=== PATIENT | male | born 1965 | race Caucasian/White ===

== ENCOUNTER → 2023-12-02 11:36 | Outpatient (REF) | payer OTHER, SELFPAY | LOC: HWRAD 11:36 | PROVIDERS: ATTENDING PHYSICIAN Family Medicine | DX: Z00.00 Encounter for general adult medical examination without abnormal findings (principal); J44.9 Chronic obstructive pulmonary disease, unspecified | CPT/HCPCS: 71046 ==

== ENCOUNTER → 2024-05-20 07:18 | Outpatient (REF) | payer OTHER, SELFPAY | LOC: EMG 07:18 | PROVIDERS: ATTENDING PHYSICIAN Physician Assistant; FAMILY PHYSICIAN Family Medicine | DX: M54.16 Radiculopathy, lumbar region (principal); R20.0 Anesthesia of skin; R10.32 Left lower quadrant pain | CPT/HCPCS: 95886; 95911 ==

== ENCOUNTER → 2024-07-21 08:22 | Outpatient (REF) | payer OTHER, SELFPAY | LOC: HWRAD 08:22 | PROVIDERS: ATTENDING PHYSICIAN Nurse Practitioner | DX: R10.9 Unspecified abdominal pain (principal); K86.1 Other chronic pancreatitis | CPT/HCPCS: 74177; Q9967 ==

== ENCOUNTER 2024-10-19 06:23 | Day surgery (SDC) | payer OTHER, SELFPAY | END 2024-10-19 14:29 | disposition home or self-care (01) | LOC: GI 06:23 | PROVIDERS: ATTENDING PHYSICIAN Internal Medicine Gastroenterology | DX: R93.3 Abnormal findings on diagnostic imaging of other parts of digestive tract (principal); K64.0 First degree hemorrhoids; K57.30 Diverticulosis of large intestine without perforation or abscess without bleeding; K63.5 Polyp of colon; R10.12 Left upper quadrant pain; K31.7 Polyp of stomach and duodenum; K31.89 Other diseases of stomach and duodenum | CPT/HCPCS: 45385; 45380; 43239; 88305; 88342 ==

== ENCOUNTER 2025-05-20 20:36 | Inpatient (IN) | payer OTHER, SELFPAY ==
[2025-05-20 17:24] VITALS: BP 134/92
[2025-05-20 17:51] LABS: Hematocrit 40.8 % (39.0-52.0); Hemoglobin 13.9 g/dL (13.0-18.0); Mean Corp Hgb Conc. 34.1 g/dL (33.0-37.0); Mean Corpuscular Volume 90.3 fL (80.0-94.0); Nucleated Red Blood Cells % 0 % (-); Platelet Count 172 10^3/uL (130-400); Red Cell Dist. Width 12.0 % (11.5-14.5)
[2025-05-20 18:07] LABS: ALT (SGPT) 16 U/L (0-50); AST (SGOT) 20 U/L (17-59); Albumin 4.2 g/dl (3.5-5.0); Alkaline Phosphatase 56 U/L (38-126); Blood Urea Nitrogen 8 mg/dl (9-20); Calcium 9.5 mg/dl (8.4-10.2); Carbon Dioxide 27 mmol/L (22-30); Chloride 104 mmol/L (98-107); Glucose 94 mg/dl (70-99); Lipase 933 U/L (23-300); Potassium 4.2 mmol/L (3.5-5.1); Sodium 137 mmol/L (135-145); Total Protein 6.8 g/dl (6.3-8.2); eGFR > 60.00
[2025-05-20 18:33] VITALS: BMI 18.9
--- NOTE | 2025-05-20 18:43 | ED.GENMED ---
History of Present Illness
General
Chief Complaint: Abdominal Pain
Source: patient
Time Seen by Provider: 05/20/25 18:17
History of Present Illness
History of Present Illness:
60-year-old male with past medical history of COPD, hyperlipidemia, previous pancreatitis presenting back to the emergency department stating that over the last 48 hours he has started to experiencing pain within the periumbilical region, radiating
towards his back similar to his last episode of pancreatitis. Patient states that last time he had this they were not sure as to what caused his pancreatitis although he does note that he had a cholecystectomy and had gallstones at that time.
Patient states that his symptoms were managed with pain control and fluids, ultimately discharged home and has been following up with his GI provider, Dr. Llanos, whom he saw 2 weeks ago, had discussed discontinuing his pantoprazole as he did not
feel he needed any more. He reports he has had both colonoscopy and endoscopy and reports that both of these test came back great. He endorses 8 out of 10 pain, constant, radiating towards his back. He did not take anything for pain yet today.
Past History
Past History
ED Past Medical History: COPD, Psychiatric (Anxiety) and Other (Otitis)
ED Past Surgical History: Cholecystectomy, Orthopedic and Other
Social History
Tobacco: Non-smoker
Alcohol: Occasional
Drug: None
Personal: Single
Living: with family
Employment: Retired
Family History
Family History: Other (Noncontributory)
Review of Systems
Review of Systems
All Other Systems: ROS reviewed and negative except as documented in HPI and ROS
Phy Exam
Physical Exam
Physical Exam:
GENERAL: Alert , in no apparent distress
EYE: clear conjunctiva b/l
HEAD: NCAT
ENT: mmm.
CARDIAC: Regular rate and rhythm .
LUNGS: Clear breath sounds bilaterally, no acute respiratory distress, no wheezes/rales/rhonchi
ABDOMEN: Soft, moderate tenderness around the periumbilical region, no r/g, no cvat
NEUROLOGICAL: Alert and oriented
SKIN: Warm and dry, skin intact.
MUSCULOSKELETAL: well perfused.
PSYCH: Normal and appropriate interaction.
Scores
Heart Failure Risk
Heart Failure Risk Score: Not Applicable
Heart Score for Chest Pain Patients
STEMI patient?: Not applicable
Withdrawal Assessment of Alcohol
Withdrawal Assessment Completed?: Not applicable
Course
Orders/Labs/Results
Orders:
Orders
05/20/25 17:44
CMP [Comprehensive Metabolic Panel] Urgent
Complete Blood Count/With Diff Urgent
Lipase Urgent
05/20/25 18:34
CT Abd/pelvis W Iv Cont Urgent
Comment:
Reason For Exam: pancreatitis, s/p choley
0.9% Sodium Chloride 1000 ml [Nss] 1,000 ml IV BOLUS
HYDROmorphone [Dilaudid] 0.5 mg IV NOW STA
05/20/25 20:00
Piperacillin/Tazo 3.375 Gram [Zosyn] 3.375 gram in 50 ml IV NOW
05/20/25 20:23
Admit/Transfer Patient As Directed
Co-Sign Provider:
Level of Care: Inpatient admission
Assign to:: Medical/Surgical
Physician / Group: jermain
Diagnosis: acute necrotizing pancreatits
Reason for Hospitalization: acute necrotizing pancreatits
Expected length of stay greater than two midnights?: Yes
ELOS- Estimated Length of Stay in days: 2
I certify the patient meets the requirements for IP care: Yes
Code Status As Directed
Resuscitation Status: Full Code
PRN Pain Medication Management As Directed
May give lesser potent ordered pain med per pt: Yes
preference::
Protocol:: Medication orders for pain may be administered in a
manner that supports deferring to patient preference
when the pt is:
- Requesting an ordered lesser potent pain medication.
Least to most potent pain medications are defined
as: acetaminophen < NSAID < tramadol < opioids
(morphine, oxycodone, hydromorphone).
- Requesting a lesser dose of the same medication IF
ORDERED.
- Requesting a less intrusive route of administration
if both routes are prescribed by the provider (PO <
IV).
05/20/25 20:27
Blood Culture Q30M
KAELA Source: Blood/Venous
Specimen Description:
Blood Culture Q30M
KAELA Source: Blood/Venous
Specimen Description:
05/20/25 20:32
HYDROmorphone [Dilaudid] 0.5 mg IV Q4HPRN PRN
Abnormal Lab Results
05/20/25
17:44
WBC 12.2 H 10^3/uL
(4.8-10.8)
RBC 4.52 L 10^6/uL
(4.70-6.10)
MPV 12.4 H fL
(7.4-10.4)
Abs Immat Gran (auto) 0.2 H 10^3/uL
(0-0.05)
Absolute Neuts (auto) 9.7 H 10^3/uL
(1.4-6.5)
Absolute Lymphs (auto) 1.1 L 10^3/uL
(1.2-3.4)
Absolute Monos (auto) 1.2 H 10^3/uL
(0.1-0.6)
Immature Gran % 1.6 H %
(0-0.5)
Neutrophils % 79.2 H %
(42.2-75.2)
Lymphocytes % 9.0 L %
(20.5-51.1)
Monocytes % 9.4 H %
(1.7-9.3)
BUN 8 L mg/dl
(9-20)
Lipase 933 H U/L
(23-300)
05/20/25 17:44
05/20/25 17:44
Vital Signs
Initial and Last Documented VS:
Initial Vital Signs
Temp Pulse Resp BP Pulse Ox
98.9 F 109 18 134/92 98
05/20/25 17:24 05/20/25 17:24 05/20/25 17:24 05/20/25 17:24 05/20/25 17:24
Last Documented Vital Signs
Temp Pulse Resp BP Pulse Ox
98.4 F 77 16 165/105 98
05/20/25 18:44 05/20/25 18:44 05/20/25 18:44 05/20/25 18:44 05/20/25 18:48
MDM/Problems Addressed
Differential Diagnosis Includes:
Pancreatitis
Choledocholithiasis
GERD
Gastritis
Peptic ulcer disease
Diverticulitis
AAA/dissection
Atypical ACS presentation
MDM/Problems Addressed:
60-year-old male presenting back to the emergency department for evaluation of abdominal pain accompanied with some decreased p.o. intake today. Symptoms reminiscent of previous episode of pancreatitis. Patient had labs initiated on arrival by
nursing staff, has a slight leukocytosis of 12,000 lipase greater than 900. Given his recurrent pancreatitis without any specified etiology last time will obtain CT to further evaluate for any possible retained stones. Pain control with Dilaudid
and IV fluids. Anticipate need for readmission.
Chronic conditions affecting care: Other (Pancreatitis)
Acute Exacerbation and/or Progression of Chronic Illness: Other (Pancreatitis)
*Radiology
Radiology exam reviewed: radiology read reviewed
*Pulse Oximetry
SaO2: 98
Oxygen Mode of Delivery: Room air
Patient hypoxic: no
*Critical Care Note
Total Time (30-74mins, 75-104mins- exclusive of procedures): Not Applicable
Data Reviewed
Review of Other/Old Records Reveals: Labs, Records and Discharge Summary
Source: patient and records
Comment
Comment:
Discharge Summary from 06/18/23
Hospital course:
Patient presented with abdominal pain secondary to acute recurrent pancreatitis. He had a similar presentation last year. No history of alcohol use. He s/p cholecystectomy. Was seen by GI. Triglycerides are within normal limits. ID G4 was
apparently negative. He had an MRCP without any obstructive biliary pathology. He had a small cystic lesion within the tail of the pancreas very likely a small benign cyst lesion such as a pseudocyst or intraductal papillary mucinous
neoplasm,sidebranch. Recommendation in that regards is to follow with an MRI of the abdomen/MRCP in 6 months.
Patient Management
Discussion with other providers: Hospitalist and Guest Services Officer
Escalation/DeEscalation of care consider admission/obs:
Patient CT concerning for acute necrotizing pancreatitis and mild sigmoid diverticulitis. Zosyn and blood cultures ordered. GI team notified and will see in consult. Hospitalist team accepts for admission
ED Attending Note
-
Portions of this chart may have been created with voice recognition software.� Occasional wrong word or��sound alike� substitutions may have occurred due to the inherent limitations of voice recognition software.
Discharge Plan
Departure
Patient Disposition: Admit
Date of Disposition: 05/20/25
Time of Disposition: 20:00
Presentation/result/management discussed w/ accepting MD/DO: Hospitalist
Discharge Problem:
Acute necrotizing pancreatitis, Sigmoid diverticulitis
Interventions
Interventions:
*General Assessment Last Done: 05/20/25 18:34
HT-Eargir-Acogrukkrr Assessment Last Done: 05/20/25 19:15
[2025-05-20 18:44] VITALS: BP 165/105
[2025-05-20] MEDS: DILAUDID 0.5 MG IV ×3 (18:46→22:55)
[2025-05-20] MEDS: NSS 1000 IV (18:47)
--- NOTE | 2025-05-20 20:26 | HPS.HSE ---
Family Physician
-
Family Physician: Jadon Cerna
Chief Complaint
-
abdominal pain
History of Present Illness
60-year-old male past medical history of recurrent pancreatitis, prior cholecystectomy, anxiety, hyperlipidemia, COPD, sciatica, presenting with abdominal pain radiating towards his back similar to prior episodes of pancreatitis. Denies nausea or
vomiting. Denies diarrhea or constipation. Denies fevers or chills.
Patient stopped taking pantoprazole because he did not feel it was necessary.
He states that he had cholecystectomy several years ago for initial episode of pancreatitis and had gallstones at the time.
Denies alcohol use. Denies smoking.
Medical History
Past Medical History
Past Medical History: Reports Other (recurrent pancreatitis, prior cholecystectomy, anxiety, hyperlipidemia, COPD, sciatica)
Past Surgical History: Reports None
Social History
Tobacco: Non-smoker
Alcohol: None
Drug: None
Family History
Family History: Not pertinent
Allergies / Home Medications
Allergies reflects when Allergies were last updated in [employer].
Home Medications with original date entered in [employer]
Allergy/Medication List:
Allergies
Allergy/AdvReac Type Severity Reaction Status Date / Time
gluten Allergy abd pain Verified 06/13/23 16:30
Home Medications
Balance Of Nature 1 dose PO DAILY PRN supplement 03/21/22
fluticasone propionate 50 mcg/actuation nasal spray,suspension 1 spray intranasal DAILY PRN seasonal allergies 03/25/22
alprazolam 1 mg tablet 0.5 - 1 mg PO HS PRN sleep/anxiety 06/13/23
cetirizine 10 mg tablet (Zyrtec) 10 mg PO DAILY PRN seasonal allergies 06/13/23
docusate sodium 100 mg capsule (Colace) 100 mg PO DAILY #30 caps 06/17/23
oxycodone-acetaminophen 5 mg-325 mg tablet 1 tab PO BID PRN moderate pain #12 tabs 06/17/23
polyethylene glycol 3350 17 gram oral powder packet (Miralax) 17 g PO DAILY #30 ea 06/17/23
Review of Systems
-
History Source: Patient
A 12 point ROS was completed and negative except as noted: Yes
Constitutional: Reports No Symptoms
EENT: Reports No Symptoms
Respiratory: Reports No Symptoms
Cardiac: Reports No Symptoms
Abdomen/GI: Reports See HPI
: Reports No Symptoms
Musculoskeletal: Reports No Symptoms
Skin: Reports No Symptoms
Neurological: Reports No Symptoms
Endocrine: Reports No Symptoms
Hematologic/Lymphatic: Reports No Symptoms
Psych: Reports No Symptoms
Physical Exam
Vital Signs
Vital Signs
Temp Pulse Resp BP Pulse Ox
98.4 F 77 16 165/105 98
05/20/25 18:44 05/20/25 18:44 05/20/25 18:44 05/20/25 18:44 05/20/25 18:48
Physical Exam
General: Well Developed, Well Nourished and No Apparent Distress
HEENT: NormoCephalic, Moist mucous membranes and Atraumatic
Respiratory: Clear
Cardiac: S1/S2 and Regular Rhythm; No Murmur or Rub
GI: Soft, Non Distended, Normal Bowel Sounds and Tender (epigastric ); No Organomegaly
Rectal: Deferred by Provider
Musculoskeletal: No Clubbing, No Cyanosis and No Edema
Skin: No Rash
Neuro: Nonfocal/grossly intact
Laboratory Results
-
05/20/25 17:44
05/20/25 17:44
Laboratory Results
Total Bilirubin 1.0 mg/dl (0.2-1.3) 05/20/25 17:44
AST 20 U/L (17-59) 05/20/25 17:44
ALT 16 U/L (0-50) 05/20/25 17:44
Alkaline Phosphatase 56 U/L (38-126) 05/20/25 17:44
Lipase 933 U/L (23-300) H 05/20/25 17:44
Data Reviewed
-
Lab Data: Labs Reviewed by me
Old Records: Reviewed
Impression/Plan
-
IMPRESSION:
PLAN:
# Acute necrotizing pancreatitis
# History of recurrent pancreatitis unclear etiology
# History of cholecystectomy
-Lipase 900
-CT abdomen pelvis shows acute necrotizing pancreatitis with decreased enhancement in the pancreatic head and body, mild acute diverticulitis, mild intrahepatic extrahepatic biliary dilatation
- N.p.o.
- IV fluids with LR
-Zofran, Dilaudid as needed
-Blood cultures
- Meropenem
- Check triglyceride
- GI consulted
# Mild acute diverticulitis
- Meropenem
Chronic left-sided sciatica/degenerative disc disease
- Had been taking Flexeril
Anxiety
Hyperlipidemia
COPD
- Never symptomatic, as per PFTs
Full code
DVT prophylaxis�heparin
N.p.o.
[2025-05-20] MEDS: ZOSYN 50 IV (20:30)
[2025-05-20 22:39] VITALS: BP 164/98; BMI 19.9
[2025-05-20] MEDS: LR 1000 IV (22:55)
[2025-05-20] MEDS: MERREM 500 MG IV (23:25)
[2025-05-20] MEDS: STERILE WATER FOR INJECTION 10 ML IV (23:25)
[2025-05-21 01:15] VITALS: BP 158/84
[2025-05-21] MEDS: DILAUDID 0.5 MG IV ×2 (02:42→20:09)
[2025-05-21] MEDS: STERILE WATER FOR INJECTION 10 ML IV ×2 (05:06→12:18)
[2025-05-21] MEDS: MERREM 500 MG IV ×2 (05:06→12:18)
[2025-05-21 06:53] LABS: Hematocrit 39.4 % (39.0-52.0); Hemoglobin 13.4 g/dL (13.0-18.0); Mean Corp Hgb Conc. 34.0 g/dL (33.0-37.0); Mean Corpuscular Volume 91.2 fL (80.0-94.0); Nucleated Red Blood Cells % 0 % (-); Platelet Count 158 10^3/uL (130-400); Red Cell Dist. Width 12.0 % (11.5-14.5)
[2025-05-21 07:09] VITALS: BP 152/99
[2025-05-21 07:20] LABS: ALT (SGPT) 15 U/L (0-50); AST (SGOT) 18 U/L (17-59); Albumin 3.7 g/dl (3.5-5.0); Alkaline Phosphatase 56 U/L (38-126); Blood Urea Nitrogen 9 mg/dl (9-20); Calcium 9.1 mg/dl (8.4-10.2); Carbon Dioxide 25 mmol/L (22-30); Chloride 104 mmol/L (98-107); Estimated Creatinine Clearance 95 ml/min; Glucose 85 mg/dl (70-99); Potassium 4.1 mmol/L (3.5-5.1); Sodium 137 mmol/L (135-145); Total Protein 6.2 g/dl (6.3-8.2); Triglycerides 60 mg/dl (10-149); eGFR > 60.00
--- NOTE | 2025-05-21 07:36 | W.PN.HOSP.TC ---
Today's Communication/Plan
-
See h&p
Assessment / Plan
Assessment / Plan
60-year-old male past medical history of recurrent pancreatitis, prior cholecystectomy, who presented yesterday with a 5 days history of abdominal pain radiating towards his back That worsened 2 days ago.
Medical history significant for recurrent pancreatitis.
CT Abd/pelvis W Iv Cont (05/20/2025)
1. ACUTE NECROTIZING PANCREATITIS with decreased enhancement in the pancreatic head and body.
2. MILD ACUTE DIVERTICULITIS in the SIGMOID COLON.
3. Mild intrahepatic and extrahepatic biliary dilatation.
4. Previous cholecystectomy.
5. Moderately enlarged prostate gland.
6. Severe diverticulosis in the sigmoid colon.
7. Severe discogenic degenerative disease at L5/S1.
Acute necrotizing pancreatitis; CT
# History of recurrent pancreatitis unclear etiology
# History of cholecystectomy
-Lipase 933. declining now 358
- IV fluids with LR
-Monitor RFT
-GI consult noted with thanks.
-Advance diet per GI
-No need for Abx for necrotizing pancreatitis, however for acute diverticulitis
-Blood cultures pending
- Triglyceride 60
# Mild acute diverticulitis
- Augmentin
#Chronic left-sided sciatica/degenerative disc disease
- Had been taking Flexeril
# Anxiety
# Hyperlipidemia
- Not on medications
#Elevated blood pressure
-Has had occasional isolated hospital visit of elevated blood pressure, not previously treated for hypertensive
-? Pain mediated
-Hydralazine
# COPD
- Normal PFT
DVT PPX- s/c Levonox
Anticipated Discharge: 24 - 48 hours
Subjective/Interval History
-
Date of Service: May 21, 2025
Pain is reduced now
No nausea, vomiting or diarrhea
Objective Data
-
Labs:
Laboratory Results
05/21/25
06:12
WBC 12.0 H
Hgb 13.4
Hct 39.4
Plt Count 158
Sodium 137
Potassium 4.1
Chloride 104
Carbon Dioxide 25
BUN 9
Creatinine 0.7
Glucose 85
Calcium 9.1
Total Bilirubin 1.3
AST 18
ALT 15
Alkaline Phosphatase 56
Vital Signs:
Vital Signs
Temp Pulse Resp BP Pulse Ox
99.1 F 87 18 158/84 96
05/21/25 02:41 05/20/25 22:39 05/20/25 22:39 05/21/25 01:15 05/20/25 22:39
I&O
05/20/25 05/21/25 05/22/25
06:59 06:59 06:59
Intake Total 840 / 840
Balance 840 / 840
Review of Systems
-
History Source: Patient
Constitutional: Denies Fever
Respiratory: Denies Cough
Cardiac: Denies Chest Pain
Abdomen/GI: Reports Abdominal Pain (Pain score of 5, reduced from an 8) and Constipated; Denies Nausea or Vomiting
Genitourinary: Reports No Symptoms
Musculoskeletal: Reports No Symptoms
Neuro: Reports No Symptoms
Physical Exam
-
Respiratory: Clear to Auscultation
Cardiac: Regular Rhythm and S1/S2; Negative Tachycardic
GI: Soft, Nondistended and Normal Bowel Sounds; Negative Nontender (Mild epigastric tenderness)
Neuro: AO x 3
Psych: Calm
Data Reviewed
-
Labs: Discussed with Patient
--- NOTE | 2025-05-21 07:52 | CON.GI ---
Addendum entered and electronically signed by Soniya Antoine DO 05/21/25 14:18:
Patient was seen and examined independently of the medical service technician. I agree with his note with my additions below. I was available and we discussed the history, physical, assessment and plan
Thor is a 60-year-old male with a history of recurrent pancreatitis suspected due to gallstone pancreatitis initially, prior cholecystectomy in 2021 with most recent admission for pancreatitis was in 2022, then 2021 and 2015. Prior IgG4 was
normal, triglycerides have been normal, no alcohol use, prior negative EUS in 2021, normal calcium. Patient denies any smoking, quit years ago. 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 Dr. Cesar is following him outpatient and he has an upcoming
appointment in July.
States 5 days prior to admission he started having symptoms of epigastric discomfort that radiated into his back. He thought maybe it was due to stopping his PPI so he restarted it along with Questran. He has been able to eat and drink with no
effect on pain and no nausea or vomiting. He did state his bowels had slowed down slightly prior to admission with no bowel movement for 2 days which is unusual for him. He has never had diverticulitis before but does have some mild left lower
quadrant discomfort.
Patient was given a liter bolus in the emergency room and now on 120 mL/h. Was started on meropenem by the emergency room because of findings of both the necrotizing pancreatitis.
05/20/2025 labs include a triglyceride of 60, lipase 933, ALT 15, AST 18, total bilirubin 1.3, BUN 9, creatinine 0.7, leukocytosis of 12,000 hemoglobin 13, hematocrit 39, platelets 158, blood cultures pending, afebrile on admission max out at 99.8,
patient is normotensive pulse rate of 87 oxygen saturation 96% on room air
. Reggie
---05/20/2025 CT abdomen pelvis with IV contrast normal size liver with mild diffuse intra and extrahepatic ductal dilatation with prior cholecystectomy, large amount of peripancreatic inflammation surrounding the body with decreased enhancement in
the head and body extending over 4.6 x 1.6 cm suggestive of acute necrotizing pancreatitis with no evidence of collection. No evidence of splenic vein thrombosis or splenic artery pseudoaneurysm. No significant lymphadenopathy. Mild distention in
the third portion and proximal jejunal loops likely due to pancreatitis, no abnormal small bowel wall thickening. Large amount of fecal material in the right colon severe diverticulosis in the sigmoid with an inflamed diverticulum in the sigmoid
consistent with mild acute uncomplicated diverticulitis.
---05/2024 CT abdomen pelvis with IV contrast 3 cm soft tissue prominence and luminal narrowing in the cecum and proximal ascending, normal pancreas with no peripancreatic inflammation stranding or edema
---06/2023 abdominal MRI normal pancreatic duct enlargement of the body and tail with stranding and edema consistent with pancreatitis no evidence of macroscopic pancreatic necrosis abscess or pseudocyst. 4 mm pancreatic tail cystic lesion
--10/[address] Llanos. Good prep to the terminal ileum. 2 small polyps removed from the transverse and ascending, sigmoid diverticulosis, internal hemorrhoids otherwise normal.
---11/2021 EUS was normal
CT January 12, 2022 mild peripancreatic stranding suspicious for acute pancreatitis.� No well-defined peripancreatic abnormal focal fluid collection.
MRI September 19, 2021 shows mild fullness of the distal body and tail the pancreas with adjacent inflammatory stranding extending to the posterior aspect the stomach most consistent with acute pancreatitis no pseudocyst or abscess.
MRCP Sep 15 2021 shows no choledocholithiasis and mild acute interstitial edematous pancreatitis.
CT September 14, 2021 showed inflammatory fat stranding around the pancreas consistent with acute interstitial edematous pancreatitis.
US 04/2021 small amount of GB sludge no cholelithiasis�
CT scan August 18, 2020 shows diffuse infiltration of pancreas.�
US 09/2018 gallbladder sludge
MRI in 2017 showing mild uncomplicated pancreatitis with extensive fatty infiltration of the pancreas.�
HIDA scan 2017 unremarkable. �
EUS 12/04/21 normal EGD.� Normal EUS.� Normal gallbladder.
# Acute severe pancreatitis based on imaging, but not on labs
-- Normal vital signs, normal BUN from the beginning
-- Generally even necrotizing pancreatitis is sterile and there is no use for prophylactic antibiotics even in severe acute pancreatitis
-- Blood cultures are pending
-- However he may also have acute uncomplicated diverticulitis which would be a reason for antibiotics
-- Patient with acute pancreatitis often have a leukocytosis from the inflammatory response
-- Goal is to prevent infection of pancreatic necrosis, roughly 25% of patients can develop an infection in the first week avoid any unnecessary lines, no urinary catheters etc.
-- Enteral nutrition and severe acute pancreatitis prevents infectious complications -need to make sure he does not have significant nausea or vomiting or significant ileus -started patient on low-fat diet. He will go slow
--Enteral feeding maintains a prevents disruption of the gut mucosal barrier and prevent translocation of bacteria that seeds pancreatic necrosis so enteral nutrition should start early and does not need to be nasojejunal
-- No need to follow lipase as it does not give us any information after diagnosis
-- Check CRP, check BMP later today
# Uncomplicated sigmoid diverticulitis -patient does have some mild discomfort in the left lower quadrant and on imaging there is an area of inflammation
-- He has known severe sigmoid diverticulosis in that area so that may account for some thickening
-- Patient does not necessarily need antibiotics for this uncomplicated diverticulitis but in the setting of having necrotizing pancreatitis I do not want to seed the pancreatitis with an infectious source so currently agree with antibiotics
-- Still okay with him starting a diet
Patient needs DVT prophylaxis and once daily PPI
Original Note:
Consultation
-
Date/Time Consultation Requested: 05/20/2025 22:00
Date/Time Consultation Performed: 05/21/2025 08:00
Requesting Provider: Jonathan Edwards
Performing Provider: Soniya Antoine
Reason for Consultation: Necrotizing Pancreatitis
Medical History
Chief Complaint / HPI
History of Present Illness:
60-year-old male with a past medical history of recurrent pancreatitis, s/p cholecystectomy, anxiety, hyperlipidemia, COPD who presented to the emergency department with abdominal pain radiating towards the back similar to prior episodes of
pancreatitis.
He reports that 5 days prior to admission he started with epigastric discomfort/pain that radiated to the back. He presumed at that time it might have been due to stopping the PPI he was taking, so he started taking it again with no improvement. He
denies nausea, vomiting, diarrhea, constipation, fevers, chill during this time. He was able to eat and drink like normal with no effect on the pain, but he does report a slightly decreased appetite. Eventually, the pain progressed to 8.5/10 and he
decided to come to the ED. He reports x4 other episodes of pancreatitis, some of which were thought to be due to cholelithiasis for which he had cholecystectomy. He reports a family history of gallbladder problems, but no family history of
pancreatitis. He reports his last drink as 5 years ago. He has smoked an occasional cigar, but not for many years. He was never a binge drinker. He follows with and had outpatient genetic testing which showed Positive result for CFTR gene
mutation:
REPORT:
- Positive for one copy each of the c.1727G>C (p.Jqg465Tib) and c.2002C>T (p.Smq133Pan) variants
- c.1727G>C (p.Yck955Xmc) is not associated with classic CF but is associated with idiopathic chronic pancreatitis.
- CFTR c.1727G>C(p.Wvc823Sjy) variant could be a neutral variant or it could be a variant that is associated with mild symptoms or a CFTR-related disorder when a CF-causing pathogenic variant is present on the opposite chromosome.
Last colonoscopy 10/19/[address] Llanos showed diverticulosis, internal hemorrhoids, 2 polyps removed and sent for pathology which showed benign mucosa. EGD done on the same day demonstrated normal esophagus, normal duodenum, biopsies of
erythematous gastric mucosa and gastric polyp which were normal and showed no H. pylori.
On arrival to the ED patient was, hypertensive into the 160/100s, tachycardic, saturating fine on room air. He was given IV pain medication, IV fluids. Pressures and heart rate improved after pain medication. CT abdomen pelvis was done which
showed acute necrotizing pancreatitis, mild acute diverticulitis in the sigmoid colon, mild intrahepatic and extrahepatic biliary dilatation severe diverticulosis of the sigmoid colon. WBCs were 12.2 with left shift, electrolytes and LFT
unremarkable, lipase 933, triglycerides 60, BUN 9. Patient was placed on IV meropenem, continued on IV LR and made NPO.
GI was consulted for necrotizing pancreatitis.
Currently he is feeling much better with about 50% improvement in pain. Denies nausea, vomiting, diarrhea, fevers, chills.
Past Medical History
Past Medical History: Other (See HPI)
Past Surgical History: Other (Cholecystectomy, bilateral hernia repair, bilateral LASEK eye surgery, bilateral rotator cuff repair, unspecified retinal repair, left hand trigger finger surgery.)
Social History
Tobacco: Former Smoker
Alcohol: None
Drug: None
Family History
Family History: Other (see hpi)
Allergies / Home Medications
Allergy/AdvReac Type Severity Reaction Status Date / Time
gluten Allergy abd pain Verified 06/13/23 16:30
�Medication �Instructions �Recorded
Balance Of Nature 1 dose PO DAILY PRN supplement 03/21/22
fluticasone propionate 50 1 spray intranasal DAILY PRN 03/25/22
mcg/actuation nasal seasonal allergies
spray,suspension
alprazolam 1 mg tablet 0.5 - 1 mg PO HS PRN sleep/anxiety 06/13/23
cetirizine 10 mg tablet (Zyrtec) 10 mg PO DAILY PRN seasonal 06/13/23
allergies
docusate sodium 100 mg capsule 100 mg PO DAILY #30 caps 06/17/23
(Colace)
oxycodone-acetaminophen 5 mg-325 1 tab PO BID PRN moderate pain #12 06/17/23
mg tablet tabs
polyethylene glycol 3350 17 gram 17 g PO DAILY #30 ea 06/17/23
oral powder packet (Miralax)
Review of Systems
-
History Source: Patient
All other systems: A 12 pt ROS was Negative except as stated above in HPI
Vital Signs
Temp Pulse Resp BP Pulse Ox
99.1 F 87 18 158/84 96
05/21/25 02:41 05/20/25 22:39 05/20/25 22:39 05/21/25 01:15 05/20/25 22:39
Physical Exam
Exam
General: Well Developed, Well Nourished, No Apparent Distress and Comfortable
HEENT: Normocephalic, Anicteric, Moist Mucous Membranes and Atraumatic
Respiratory: Clear and Non Labored Respirations; Negative Wheezes, Rales or Rhonchi
Cardiac: S1/S2 and Regular Rhythm; Negative Murmur or Rub
Breast: N/A
GI: Soft, Non Distended and Other (hyperactive bowel sounds, epigastric tenderness (improved from yesterday))
Rectal: Deferred by Provider
Musculoskeletal: No Clubbing, No Cyanosis and No Edema
Skin: Warm and Dry
Neuro: AO x 3
Psych: Calm
Results
WBC 12.0 10^3/uL (4.8-10.8) H 05/21/25 06:12
Hgb 13.4 g/dL (13.0-18.0) 05/21/25 06:12
Hct 39.4 % (39.0-52.0) 05/21/25 06:12
MCV 91.2 fL (80.0-94.0) 05/21/25 06:12
Plt Count 158 10^3/uL (130-400) 05/21/25 06:12
Absolute Neuts (auto) 9.4 10^3/uL (1.4-6.5) H 05/21/25 06:12
Sodium 137 mmol/L (135-145) 05/21/25 06:12
Potassium 4.1 mmol/L (3.5-5.1) 05/21/25 06:12
Chloride 104 mmol/L (98-107) 05/21/25 06:12
Carbon Dioxide 25 mmol/L (22-30) 05/21/25 06:12
BUN 9 mg/dl (9-20) 05/21/25 06:12
Creatinine 0.7 mg/dL (0.7-1.3) 05/21/25 06:12
Calcium 9.1 mg/dl (8.4-10.2) 05/21/25 06:12
Total Bilirubin 1.3 mg/dl (0.2-1.3) 05/21/25 06:12
AST 18 U/L (17-59) 05/21/25 06:12
ALT 15 U/L (0-50) 05/21/25 06:12
Alkaline Phosphatase 56 U/L (38-126) 05/21/25 06:12
Lipase 933 U/L (23-300) H 05/20/25 17:44
Diagnostic Image Results:
Prior GI Procedures:
EGD:
(10/19/2024)
Findings:
The examined esophagus was normal.
Striped moderately erythematous mucosa without bleeding was found in the
entire examined stomach. Biopsies were taken with a cold forceps for
histology. Bile seen in stomach as well.
The examined duodenum was normal. Biopsies for histology were taken with
a cold forceps for evaluation of celiac disease.
A single 1 mm semi-sessile polyp was found in the gastric body. Biopsies
were taken with a cold forceps for histology.
Impression:
- Normal esophagus.
- Erythematous mucosa in the stomach. Biopsied.
- Normal examined duodenum. Biopsied.
- A single gastric polyp. Biopsied.
Recommendation:
- Resume regular diet.
- Continue present medications. If path normal
consider trial of questran (on lansopraozle bid
currently).
- Await pathology results.
Colonoscopy:
(10/19/2024)
Findings:
The terminal ileum appeared normal.
A 2 mm polyp was found in the ascending colon. The polyp was
semi-sessile. The polyp was removed with a jumbo cold forceps. Resection
and retrieval were complete.
A 4 mm polyp was found in the transverse colon. The polyp was flat. The
polyp was removed with a cold snare. Resection and retrieval were
complete.
Multiple large-mouthed, medium-mouthed and small-mouthed diverticula
were found in the sigmoid colon.
Internal hemorrhoids were found during endoscopy. The hemorrhoids were
medium-sized and Grade I (internal hemorrhoids that do not prolapse).
Evidence of prior hemorrhoid surgery seen.
Cecum and ascending colon appeared normal.
Impression:
- The examined portion of the ileum was normal.
- One 2 mm polyp in the ascending colon, removed with
a jumbo cold forceps. Resected and retrieved.
- One 4 mm polyp in the transverse colon, removed with
a cold snare. Resected and retrieved.
- Diverticulosis in the sigmoid colon.
- Internal hemorrhoids.
Recommendation:
- Resume regular diet.
- Continue present medications.
- Await pathology results.
- Repeat colonoscopy in 5-7 years for surveillance
based on pathology results.
- No aspirin, ibuprofen, naproxen, or other
non-steroidal anti-inflammatory drugs for 5 days after
polyp removal.
Assessment / Plan
-
60-year-old male with a past medical history of recurrent pancreatitis, s/p cholecystectomy secondary to choledocholithiasis, anxiety, hyperlipidemia, COPD who presented to the emergency department with abdominal pain radiating towards the back
similar to prior episodes of pancreatitis. CT abdomen pelvis was done which showed acute necrotizing pancreatitis, mild acute diverticulitis in the sigmoid colon, mild intrahepatic and extrahepatic biliary dilatation severe diverticulosis of the
sigmoid colon. Patient was placed on IV meropenem, continued on IV fluids and made NPO.
CT Abd/Pelvis w/ IV contrast (05/20/2025):
1. ACUTE NECROTIZING PANCREATITIS with decreased enhancement in the pancreatic head and body. NO COLLECTION.
2. MILD ACUTE DIVERTICULITIS in the SIGMOID COLON.
3. Mild intrahepatic and extrahepatic biliary dilatation.
4. Previous cholecystectomy.
5. Moderately enlarged prostate gland.
6. Severe diverticulosis in the sigmoid colon.
7. Severe discogenic degenerative disease at L5/S1.
# Acute necrotizing pancreatitis
# Chronic pancreatitis
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
# History of pancreatitis
# s/p cholecystectomy
# Leukocytosis
Acute on chronic pancreatitis with necrotizing features and no fluid collection on CT scan. Etiology is most likely idiopathic vs. secondary to CFTR gene variant as seen on outpatient testing (though ultimate influence uncertain without further
genetic evaluation). TGs 60 and so unlikely to be contributing. S/p cholecystectomy w/o evidence of biliary obstruction make choledocholithiasis less likely.
No role for drainage or debridement at this time as there is no fluid collection. Can consider reassessment after 4-6 weeks with abd MRI
BUN, qc scientist, hct unremarkable -- would c/t closely monitor fluid status and signs of hemoconcentration
Tbili 1 -> 1.3 -- c/t monitor for signs of cholangitis/cholestasis
Continue to trend CMP, CBC, temperature curve
Agree to continue with IV LR for aggressive fluid resuscitation within first 24hours
Agree with IV meropenem for better penetration pending blood cx.
- If blood cx found to be negative and patient remains afebrile with improving clinical sx, would d/c abx
Would provide low fat diet
- Early enteral nutrition is beneficial for maintaining mucosal integrity which reduces risk of bacterial translocation.
Will continue to monitor for clinical improvement. Strongly encourage OP genetic counselling for full evaluation of the extent of possible clinical vs. subclinical CF.
-
-
Thank you for consultation and allowing me to participate in the patient's care. Please call the manager of information GI physician during the after hours with any questions or concerns.
[2025-05-21] MEDS: HEPARIN 5000 UNITS SC (08:04)
[2025-05-21] MEDS: LR 1000 IV ×3 (08:04→23:43)
[2025-05-21] MEDS: TYLENOL 650 MG PO ×3 (08:05→22:22)
[2025-05-21 09:53] LABS: C-Reactive Protein 119.90 mg/L (0.0-10.00)
[2025-05-21 11:32] LABS: Lipase 358 U/L (23-300)
--- NOTE | 2025-05-21 13:57 | W.PN.UPDATE ---
Update Note
Progress Note Update
Seen and examined the patient independently. Agree with the plan put forth by the resident-discussed. See changes in my documentation
60-year-old pleasant man with history of recurrent pancreatitis presented with abdominal pain. Patient underwent cholecystectomy in March 2022
On examination awake alert
Cardiovascular system S1-S2 appreciated
Chest clear to auscultation
Abdomen soft and nontender in the epigastric area, mild tenderness towards the left upper quadrant and left lumbar
No pedal edema
CT abdomen and pelvis-acute necrotizing pancreatitis with decreased enhancement of the pancreatic head and body. Mild acute diverticulitis of the sigmoid colon. Mild intrahepatic and extrahepatic biliary dilatation, previous cholecystectomy.
Moderately enlarged prostate gland. Severe diverticulosis of the sigmoid colon. Severe discogenic degenerative disease of L5-S1.
(All the CT findings were discussed with the patient including follow-up needs)
# Recurrent episodes of pancreatitis
Necrotizing pancreatitis on CT
Symptoms improved, no tenderness. He also does not have any fevers.
History of cholecystectomy
Patient does not drink alcohol
IgG 4 was normal in the past
Patient follows with Dr. Cesar and had outpatient genetic testing which showed positive results for CFTR gene mutation
Pain is much better
Diet advancement-defer to GI
# Acute diverticulitis of the sigmoid colon-on Zosyn. Switch to Augmentin.
Patient had a colonoscopy October 2024-with small polyps in the ascending colon, transverse colon, diverticulosis in the sigmoid colon and internal hemorrhoids.
# Asthma/emphysema/COPD
# Prostatic hypertrophy
# Severe discogenic degenerative disease L5/S1
# Remote smoking history
# DVT prophylaxis-Lovenox
# Full code
D/W GI
Discussed with nursing
[2025-05-21 14:30] LABS: Blood Urea Nitrogen 9 mg/dl (9-20); Calcium 9.3 mg/dl (8.4-10.2); Carbon Dioxide 29 mmol/L (22-30); Chloride 104 mmol/L (98-107); Estimated Creatinine Clearance 111 ml/min; Glucose 117 mg/dl (70-99); Potassium 4.7 mmol/L (3.5-5.1); Sodium 138 mmol/L (135-145); eGFR > 60.00
--- NOTE | 2025-05-21 14:56 | CM ---
Met with patient at bedside
Pharmacy verified: [facility] Radha Doran
Family Provider verified and updates with Admission office: CHRISTINE Burnette @ [facility]; [address] [facility], [place], [place] phone # [phone]
Lives alone; split level home; 13 steps to bathroom; railing on stairs; bath has tub w/shower
PLOF: reported he is independent with ambulation, stairs, and ADLs; retired; drives; no DME
No SNF or Home Health utilization history
Will drive self home
Plan: discharge to home when medically stable; Case Management will monitor and support needs/services if recommended
[2025-05-21 15:00] VITALS: BP 161/93
[2025-05-21] MEDS: PROTONIX 40 MG PO (15:03)
[2025-05-21] MEDS: LOVENOX 40 MG SC (17:34)
[2025-05-21] MEDS: AUGMENTIN 875 MG/125 MG 1 TABLET PO (19:14)
[2025-05-21 19:49] LABS: Hematocrit 39.0 % (39.0-52.0); Hemoglobin 13.3 g/dL (13.0-18.0); Mean Corp Hgb Conc. 34.1 g/dL (33.0-37.0); Mean Corpuscular Volume 91.1 fL (80.0-94.0); Platelet Count 159 10^3/uL (130-400); Red Cell Dist. Width 11.9 % (11.5-14.5)
[2025-05-21 23:12] VITALS: BP 141/86
[2025-05-22] MEDS: DILAUDID 0.5 MG IV (02:55)
[2025-05-22 07:00] VITALS: BP 141/89
[2025-05-22 07:56] LABS: Blood Urea Nitrogen 8 mg/dl (9-20); Calcium 9.3 mg/dl (8.4-10.2); Carbon Dioxide 30 mmol/L (22-30); Chloride 105 mmol/L (98-107); Estimated Creatinine Clearance 111 ml/min; Glucose 97 mg/dl (70-99); Potassium 4.5 mmol/L (3.5-5.1); Sodium 139 mmol/L (135-145); eGFR > 60.00
[2025-05-22] MEDS: LR 1000 IV ×2 (08:00→17:12)
[2025-05-22] MEDS: PROTONIX 40 MG PO (08:01)
[2025-05-22] MEDS: AUGMENTIN 875 MG/125 MG 1 TABLET PO ×2 (08:01→19:43)
[2025-05-22] MEDS: TYLENOL 650 MG PO ×2 (08:04→22:32)
--- NOTE | 2025-05-22 08:08 | W.PN.HOSP.TC ---
Today's Communication/Plan
-
Monitor current condition
Assessment / Plan
Assessment / Plan
60-year-old male past medical history of recurrent pancreatitis, prior cholecystectomy, who presented yesterday with a 5 days history of abdominal pain radiating towards his back That worsened 2 days ago.
Medical history significant for recurrent pancreatitis.
CT Abd/pelvis W Iv Cont (05/20/2025)
1. ACUTE NECROTIZING PANCREATITIS with decreased enhancement in the pancreatic head and body.
2. MILD ACUTE DIVERTICULITIS in the SIGMOID COLON.
3. Mild intrahepatic and extrahepatic biliary dilatation.
4. Previous cholecystectomy.
5. Moderately enlarged prostate gland.
6. Severe diverticulosis in the sigmoid colon.
7. Severe discogenic degenerative disease at L5/S1.
Acute necrotizing pancreatitis; CT
# History of recurrent pancreatitis unclear etiology
# History of cholecystectomy
-Lipase 933. declining now 358
- IV fluids with LR
-Monitor RFT
-GI consult noted with thanks.
-Diet was advanced yesterday, low fat
-Tolerating it
-No need for Abx for necrotizing pancreatitis, however for acute diverticulitis
-Triglyceride 60
Microbiology
05/20/25 20:27 Blood Culture - Preliminary
Blood/Venous No Growth in 24 hours- Final report to follow
05/20/25 20:27 Blood Culture - Preliminary
Blood/Venous No Growth in 24 hours- Final report to follow
# Mild acute diverticulitis
- Augmentin
#Chronic left-sided sciatica/degenerative disc disease
- Had been taking Flexeril
# Anxiety
# Hyperlipidemia
- Not on medications
#Elevated blood pressure
-Has had occasional isolated hospital visit of elevated blood pressure, not previously treated for hypertensive
-? Pain mediated
-Hydralazine 10mg PRN
-Consider for Anti-hypertensives
# COPD
- Normal PFT
DVT PPX- s/c Levonox
Dispo- For discharge later today if
Anticipated Discharge: Within 24 hours
Subjective/Interval History
-
Date of Service: May 22, 2025
Patient seen
Abdominal pain is subsiding
Tolerating p.o.
No nausea, vomiting, fever
Last moved his bowel 2 days ago
Objective Data
-
Labs:
Laboratory Results
05/22/25
06:32
Sodium 139
Potassium 4.5
Chloride 105
Carbon Dioxide 30
BUN 8 L
Creatinine 0.6 L
Glucose 97
Calcium 9.3
Vital Signs:
Vital Signs
Temp Pulse Resp BP Pulse Ox
98.8 F 74 16 141/89 98
05/22/25 07:00 05/22/25 07:00 05/22/25 07:00 05/22/25 07:00 05/22/25 07:00
I&O
05/21/25 05/22/25 05/23/25
06:59 06:59 06:59
Intake Total 840 / 840 3960 / 3960
Balance 840 / 840 3960 / 3960
Review of Systems
-
History Source: Patient
Constitutional: Denies Fever
Respiratory: Denies Cough
Cardiac: Denies Chest Pain
Abdomen/GI: Reports Abdominal Pain (Pain score of 3, reduced from an 8, now more lower abdomen) and Constipated; Denies Nausea or Vomiting
Genitourinary: Reports No Symptoms
Musculoskeletal: Reports No Symptoms
Neuro: Reports No Symptoms
Physical Exam
-
General: Other (Appears thin)
HEENT: Normocephalic
Respiratory: Clear to Auscultation
Cardiac: Regular Rhythm and S1/S2
GI: Soft, Nontender (Vague tenderness) and Nondistended
Data Reviewed
-
Labs: Labs Reviewed by me, Discussed with Physician and Discussed with Patient
[2025-05-22 09:01] LABS: C-Reactive Protein 135.80 mg/L (0.0-10.00)
--- NOTE | 2025-05-22 13:26 | W.PN.GI.CBS2 ---
Today's Communication / Plan
-
-- Dulcolax, I printed the MRI order for him to have outpatient in 4 to 6 weeks
-- I sent a message to the office as well for an FYI to Dr. Cesar
Assessment / Plan
-
Thor is a 60-year-old male with a history of recurrent pancreatitis suspected due to gallstone pancreatitis initially, prior cholecystectomy in 2021 with most recent admission for pancreatitis was in 2022, then 2021 and 2015. Prior IgG4 was
normal, triglycerides have been normal, no alcohol use, prior negative EUS in 2021, normal calcium. Patient denies any smoking, quit years ago. 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 Dr. Cesar is following him outpatient and he has an upcoming
appointment in July.
States 5 days prior to admission he started having symptoms of epigastric discomfort that radiated into his back. He thought maybe it was due to stopping his PPI so he restarted it along with Questran. He has been able to eat and drink with no
effect on pain and no nausea or vomiting. He did state his bowels had slowed down slightly prior to admission with no bowel movement for 2 days which is unusual for him. He has never had diverticulitis before but does have some mild left lower
quadrant discomfort.
CT Abd/Pelvis w/ IV contrast (05/20/2025):
1. ACUTE NECROTIZING PANCREATITIS with decreased enhancement in the pancreatic head and body. NO COLLECTION.
2. MILD ACUTE DIVERTICULITIS in the SIGMOID COLON.
3. Mild intrahepatic and extrahepatic biliary dilatation.
4. Previous cholecystectomy.
5. Moderately enlarged prostate gland.
6. Severe diverticulosis in the sigmoid colon.
7. Severe discogenic degenerative disease at L5/S1.
# Acute necrotizing pancreatitis
# Chronic pancreatitis
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
# History of pancreatitis
# s/p cholecystectomy
# Leukocytosis
# Acute severe pancreatitis based on imaging, but not on labs
-- IMPROVING, clinically doing well. BUN normal throughout his stay, normal kidney function, no pleural effusion or oxygen needs
-- Generally even necrotizing pancreatitis is sterile and there is no use for prophylactic antibiotics even in severe acute pancreatitis
-- Blood cultures are negative
-- However he may also have acute uncomplicated diverticulitis which would be a reason for antibiotics he will complete a 10-day course of Augmentin -
-- Goal is to prevent infection of pancreatic necrosis, roughly 25% of patients can develop an infection in the first week avoid any unnecessary lines, no urinary catheters etc.
--Patient can be discharged tomorrow as long as he continues to do well. We discussed reasons to come back including fever, chills, rigors, increased bloating or difficulty eating
--I gave him a prescription for an MRI with MRCP to be done in 4 to 6 weeks with follow-up with Dr. Cesar - 07/18 at 11 AM
# Mild constipation -will give him a gentle laxative today. He has good bowel sounds no nausea no vomiting no pain
# Uncomplicated sigmoid diverticulitis -patient does have some mild discomfort in the left lower quadrant and on imaging there is an area of inflammation
-- He has known severe sigmoid diverticulosis in that area so that may account for some thickening
-- Patient does not necessarily need antibiotics for this uncomplicated diverticulitis but in the setting of having necrotizing pancreatitis I do not want to seed the pancreatitis with an infectious source so currently agree with antibiotics
-- Still okay with him starting a diet
Subjective
Subjective
Date of Service: May 22, 2025
Patient has no abdominal pain. No significant flatus or bowel movement yet. Eating low-fat diet without problems.
Objective
Data Reviewed
Laboratory Data:
Laboratory Results
05/21/25 19:41
05/22/25 06:32
Laboratory Results
Total Bilirubin 1.3 mg/dl (0.2-1.3) 05/21/25 06:12
AST 18 U/L (17-59) 05/21/25 06:12
ALT 15 U/L (0-50) 05/21/25 06:12
Alkaline Phosphatase 56 U/L (38-126) 05/21/25 06:12
Lipase 358 U/L (23-300) H 05/21/25 06:12
Vital Signs and I&O:
Vital Signs
Temp Pulse Resp BP Pulse Ox
98.8 F 74 16 141/89 98
05/22/25 07:00 05/22/25 07:00 05/22/25 07:00 05/22/25 07:00 05/22/25 08:30
I&O
05/21/25 05/22/25 05/23/25
06:59 06:59 06:59
Intake Total 840 / 840 3960 / 3960
Balance 840 / 840 3960 / 3960
Physical Exam
Physical Exam
HEENT: Anicteric
Cardiology: Normal Sinus Rhythm
GI: Soft, Non Distended, Non Tender and Normal Bowel Sounds
Extremities: No Edema
Neuro: Non Focal
--- NOTE | 2025-05-22 14:21 | W.PN.UPDATE ---
Update Note
Progress Note Update
Seen and examined the patient independently. Agree with the plan put forth by the resident-discussed. See changes in my documentation
60-year-old pleasant man with history of recurrent pancreatitis presented with abdominal pain. Patient underwent cholecystectomy in March 2022
On examination awake alert
Cardiovascular system S1-S2 appreciated
Chest clear to auscultation
Abdomen soft and nontender
No pedal edema
CT abdomen and pelvis-acute necrotizing pancreatitis with decreased enhancement of the pancreatic head and body. Mild acute diverticulitis of the sigmoid colon. Mild intrahepatic and extrahepatic biliary dilatation, previous cholecystectomy.
Moderately enlarged prostate gland. Severe diverticulosis of the sigmoid colon. Severe discogenic degenerative disease of L5-S1.
(All the CT findings were discussed with the patient including follow-up needs)
# Recurrent episodes of pancreatitis
Necrotizing pancreatitis on CT
Symptoms improved, no tenderness. He also does not have any fevers.
History of cholecystectomy
Patient does not drink alcohol
IgG 4 was normal in the past
Patient follows with Dr. Cesar and had outpatient genetic testing which showed positive results for CFTR gene mutation
Pain is much better
Patient had pain overnight but no pain since morning after he had a diet. Dilaudid discontinued
Outpatient MRI prescription was given by GI and to follow-up with Dr. Cesar
# Acute diverticulitis of the sigmoid colon-on Zosyn. Switch to Augmentin.
Patient had a colonoscopy October 2024-with small polyps in the ascending colon, transverse colon, diverticulosis in the sigmoid colon and internal hemorrhoids.
# Asthma/emphysema/COPD
# Prostatic hypertrophy
# Severe discogenic degenerative disease L5/S1
# Remote smoking history
# DVT prophylaxis-Lovenox
# Full code
D/W GI
Discussed with nursing
Per discussion with GI discharge patient tomorrow
[2025-05-22] MEDS: DULCOLAX 10 MG PO (14:26)
[2025-05-22 15:25] VITALS: BP 142/84
[2025-05-22] MEDS: LOVENOX 40 MG SC (17:12)
[2025-05-22] MEDS: MELATONIN 5 MG PO (22:33)
[2025-05-22 23:03] VITALS: BP 150/89
[2025-05-23] MEDS: LR 1000 IV (03:06)
--- NOTE | 2025-05-23 08:03 | W.PN.HOSP.TC ---
Today's Communication/Plan
-
Stable
For discharge
Continue full course antibiotics as outpatient
Per GI: outpatient MRI with MRCP and follow up with Dr. Cesar in 4-6 weeks, warning signs to look out for
Follow up with PCP on HPN as outpatient
Assessment / Plan
Assessment / Plan
60-year-old male past medical history of recurrent pancreatitis, prior cholecystectomy, who presented yesterday with a 5 days history of abdominal pain radiating towards his back That worsened 2 days ago.
Medical history significant for recurrent pancreatitis.
CT Abd/pelvis W Iv Cont (05/20/2025)
1. ACUTE NECROTIZING PANCREATITIS with decreased enhancement in the pancreatic head and body.
2. MILD ACUTE DIVERTICULITIS in the SIGMOID COLON.
3. Mild intrahepatic and extrahepatic biliary dilatation.
4. Previous cholecystectomy.
5. Moderately enlarged prostate gland.
6. Severe diverticulosis in the sigmoid colon.
7. Severe discogenic degenerative disease at L5/S1.
Acute necrotizing pancreatitis; CT
# History of recurrent pancreatitis
-Lipase 933--->358
- IV fluids with LR
-Triglyceride 60
-Monitor RFT
-No need for Abx for necrotizing pancreatitis, however for acute diverticulitis
�Per GI: Outpatient MRI w/ MRCP prescription and to follow-up with Dr. Cesar (4-6 weeks),
-Call PCP or go back to ER for: fever, chills, rigors, increased bloating or difficulty eating
Microbiology
05/20/25 20:27 Blood Culture - Preliminary
Blood/Venous No Growth in 24 hours- Final report to follow
05/20/25 20:27 Blood Culture - Preliminary
Blood/Venous No Growth in 24 hours- Final report to follow
# Mild acute diverticulitis
- Augmentin
#Chronic left-sided sciatica/degenerative disc disease
- Had been taking Flexeril
# Hyperlipidemia
- Not on medications
#Elevated blood pressure
-Has had occasional isolated hospital visit of elevated blood pressure, not previously treated for hypertensive
-possibly Pain mediated
-Hydralazine 10mg PRN
-Follow up with PCP outpatient
# COPD
- Normal PFT
DVT PPX- s/c Lovenox
Dispo- For discharge later today if
Anticipated Discharge: Today
Subjective/Interval History
-
Date of Service: May 23, 2025
The patient denies any abdominal pain. He says that he's feeling much better. Denies fever, vomiting, cough, and SOB.
Objective Data
-
Vital Signs:
Vital Signs
Temp Pulse Resp BP Pulse Ox
98.8 F 73 16 150/89 98
05/22/25 23:03 05/22/25 23:03 05/22/25 23:03 05/22/25 23:03 05/22/25 23:03
I&O
05/22/25 05/23/25 05/24/25
06:59 06:59 06:59
Intake Total 3960 / 3960 3760 / 3760
Balance 3960 / 3960 3760 / 3760
Review of Systems
-
History Source: Patient
Constitutional: Denies Fever
EENT: Reports No Symptoms Reported
Respiratory: Denies Cough
Cardiac: Denies Chest Pain
Abdomen/GI: Reports Constipated; Denies Nausea or Vomiting
Genitourinary: Reports No Symptoms
Musculoskeletal: Reports No Symptoms
Neuro: Reports No Symptoms
Hematologic / Lymphatic: Denies Bleeding
Physical Exam
-
General: Comfortable and Conversant
HEENT: Normocephalic
Respiratory: Clear to Auscultation
Cardiac: Regular Rhythm and S1/S2
GI: Soft, Nondistended and Tender (Very mild on the epigastrium)
Musculoskeletal: No Clubbing, No Cyanosis and No Edema
Skin: Warm
Neuro: AO x 3
Psych: Calm
[2025-05-23] MEDS: AUGMENTIN 875 MG/125 MG 1 TABLET PO (08:22)
[2025-05-23] MEDS: PROTONIX 40 MG PO (08:22)
[2025-05-23 09:11] LABS: C-Reactive Protein 51.90 mg/L (0.0-10.00)
[2025-05-23 09:45] VITALS: BP 122/77
[2025-05-23 12:00] VITALS: BP 120/70
--- NOTE | 2025-05-23 14:23 | W.PN.UPDATE ---
Update Note
Progress Note Update
Seen and examined the patient independently. Agree with the plan put forth by the resident-discussed. See changes in my documentation
60-year-old pleasant man with history of recurrent pancreatitis presented with abdominal pain. Patient underwent cholecystectomy in March 2022
On examination awake alert
Cardiovascular system S1-S2 appreciated
Chest clear to auscultation
Abdomen soft and nontender
No pedal edema
CT abdomen and pelvis-acute necrotizing pancreatitis with decreased enhancement of the pancreatic head and body. Mild acute diverticulitis of the sigmoid colon. Mild intrahepatic and extrahepatic biliary dilatation, previous cholecystectomy.
Moderately enlarged prostate gland. Severe diverticulosis of the sigmoid colon. Severe discogenic degenerative disease of L5-S1.
(All the CT findings were discussed with the patient including follow-up needs)
# Recurrent episodes of pancreatitis
Necrotizing pancreatitis on CT
Symptoms improved, no tenderness. He also does not have any fevers.
History of cholecystectomy
Patient does not drink alcohol
IgG 4 was normal in the past
Patient follows with Dr. Cesar and had outpatient genetic testing which showed positive results for CFTR gene mutation
Pain is much better, tolerating diet.
Outpatient MRI prescription was given by GI and to follow-up with Dr. Cesar on Jul 26.
CRP improving
# Acute diverticulitis of the sigmoid colon-antibiotics switched to Augmentin.
Patient had a colonoscopy October 2024-with small polyps in the ascending colon, transverse colon, diverticulosis in the sigmoid colon and internal hemorrhoids.
# Asthma/emphysema/COPD
# Prostatic hypertrophy
# Severe discogenic degenerative disease L5/S1
# Remote smoking history
# DVT prophylaxis-Lovenox
# Full code
D/W GI
Discussed with nursing
Patient is aware about follow-up needs, dietary restrictions
Discharge today
Discharge coordination time more than 30 minutes
--- NOTE | 2025-05-23 16:37 | CM ---
MD entered order for discharge.
Spoke with patient he said he was ready for dc.
He said he did not need VN
He said he will drive him self home
PLAN Home no needs .
--- NOTE | 2025-05-23 16:51 | W.DCSUMMARY ---
Discharge Summary
Discharge Data
Date of Admission: 05/20/25
Date of Discharge: 05/23/25
-
Pending Results: No
Hospital Course
Discharging Physician : Filipe Burks MD, Gem Chahal MD
Disposition : Home
Primary care physician : Shey Wong
Principal Discharge diagnosis : Acute Necrotizing Pancreatitis on background of recurrent pancreatitis, Acute diverticulitis of sigmoid colon
Chronic Discharge diagnosis : Restrictive Lung Disease, Severe discogenic degenerative disease at L5/S1, Enlarged Prostate
Hospital Course :
60-year-old male with past medical history of restrictive lung disease, hyperlipidemia, previous pancreatitis presented back to the emergency department for pain within the periumbilical region, radiating towards his back that had been ongoing for
the past 48 hours prior to consult. Past admission on 10/19/2024 was also due to pancreatitis. Patient states that his symptoms were managed with pain control and fluids, ultimately discharged home and has been following up with his GI provider,
Romi, whom he saw 2 weeks ago, had discussed discontinuing his pantoprazole as he did not feel he needed any more. He reports he has had both colonoscopy and endoscopy and reports that both of these test came back great. He endorses 8 out of 10
pain, constant, radiating towards his back. He did not take anything for pain yet today.
On arrival to the ED patient was, hypertensive into the 160/100s, tachycardic, saturating fine on room air.� He was given IV pain medication, IV fluids.� Pressures and heart rate improved after pain medication. CT abdomen pelvis was done which
showed acute necrotizing pancreatitis, mild acute diverticulitis in the sigmoid colon, mild intrahepatic and extrahepatic biliary dilatation severe diverticulosis of the sigmoid colon.� WBCs were 12.2 with left shift, electrolytes and LFT
unremarkable, lipase 933, triglycerides 60, BUN 9. Patient was placed on IV meropenem, continued on IV LR and made NPO.
The following problems were addressed during this admission:
Acute necrotizing pancreatitis; CT
# History of recurrent pancreatitis
-Lipase was trended, 933 at the ED and dropped to 358. Triglycerides also obtained and noted to be normal at 60.� IV fluids initiated with LR. Pain management continued. Per GI, antibiotics was started for acute diverticulitis to prevent infectious
seeding in the setting of necrotizing pancreatitis. C-reactive protein trended down from 135.80 to 51.90. preliminary blood culture was negative. The patient continued to be monitored. On the fourth hospital day the patient denied abdominal pain,
fever, and was noted to be stable. He was discharged with outpatient MRI w/ MRCP prescription and to follow-up with Dr. Cesar (4-6 weeks). Also instructed on warning signs such as fever, chills, rigors, increased bloating or difficulty eating.
# Mild acute diverticulitis
-The patient was started on a 10-day course of Augmentin 875 mg/125 mg 1 tablet by mouth every 12 hours
#Elevated blood pressure
The HPN may possibly be pain mediated. The patient was placed on hydralazine 10mg PRN for SBP more than 160. Instructed to follow-up with PCP as outpatient.
#Enlarged prostate
The patient is asymptomatic. To follow-up with PCP for further laboratory workup and monitoring.
#Severe discogenic degenerative disease at L5/S1
Pain management as needed
Important imaging findings :
Abdomen/Pelvis CT (05/20/25)
FINDINGS:
CHEST: The heart is normal in size. There is no pericardial or pleural effusion. There is a minimal amount of dependent subsegmental atelectasis and scarring in the basilar segments of the lower lobes of both lungs.
ABDOMEN: The liver appears normal in size measuring 15 cm in length. There is mild diffuse intrahepatic and extrahepatic biliary dilatation. There has been a previous cholecystectomy.
There is a large amount of peripancreatic inflammation around the pancreatic body. There is decreased enhancement in the head and body of the pancreas extending over a region measuring approximately 4.6 x 1.6 cm in transverse and AP dimensions. The
appearance is suggestive of acute necrotizing pancreatitis. There is no evidence for acute necrotic collection. There is no evidence for splenic vein thrombosis or splenic artery pseudoaneurysm.
The spleen is normal in size. There is no mesenteric or retroperitoneal lymphadenopathy. There is no abdominal aortic aneurysm. The adrenal glands appear normal. The kidneys are normal in size without evidence for hydronephrosis.
There is no abnormal distention or wall thickening in the stomach. There is mild distention of the third portion of the duodenum and proximal jejunal loops which is likely secondary to mild adynamic ileus in the setting of acute pancreatitis. There
is no upper abdominal ascites or pneumoperitoneum.
PELVIS: There is no abnormal small bowel wall thickening or distention in the pelvis. The appendix appears normal. There is a moderate to large amount of fecal material in the cecum and ascending colon. The transverse colon and ascending colon are
collapsed. There is moderate diverticulosis in the descending colon. There is severe diverticulosis throughout the sigmoid colon. There is an inflamed diverticulum protruding posteriorly from the sigmoid colon (axial image #63, series #201)
consistent with mild acute diverticulitis. There is no evidence for extraluminal air, pericolonic abscess, or pneumoperitoneum. There is a moderate amount of fecal material in the upper rectum.
The prostate gland is moderately enlarged. The seminal vesicles appear normal. The urinary bladder appears normal. There is no peritoneal fluid or lymphadenopathy in the pelvis. There is evidence for a previous left inguinal hernia repair.
SKELETON: There is severe discogenic degenerative disease at L5/S1 with severe loss of intervertebral disc space height. There is mild discogenic degenerative disease at the other lumbar levels and in the lower thoracic spine. There is moderate
bilateral facet joint arthrosis at L4/L5. There is mild bilateral arthritis of the sacroiliac joints. There is mild bilateral osteoarthritis of the hips. There is a 1.8 cm intramedullary lesion in the intertrochanteric left proximal femur which has
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
IMPRESSION:
1. ACUTE NECROTIZING PANCREATITIS with decreased enhancement in the pancreatic head and body.
2. MILD ACUTE DIVERTICULITIS in the SIGMOID COLON.
3. Mild intrahepatic and extrahepatic biliary dilatation.
4. Previous cholecystectomy.
5. Moderately enlarged prostate gland.
6. Severe diverticulosis in the sigmoid colon.
7. Severe discogenic degenerative disease at L5/S1.
ECG:
Vent. Rate : 86 BPM Atrial Rate : 86 BPM
P-R Int : 150 ms QRS Dur : 98 ms
QT Int : 352 ms P-R-T Axes : 70 -35 45 degrees
QTcB Int : 421 ms
NORMAL SINUS RHYTHM
LEFT AXIS DEVIATION
ABNORMAL ECG
WHEN COMPARED WITH ECG OF 15-Apr-2023 11:58,
NO SIGNIFICANT CHANGE WAS FOUND
Procedure findings :
Discharge Plan
-
Patient Disposition: Home (Routine Discharge)
Discharge Diagnosis/Procedures: Acute Necrotizing Pancreatitis on background of recurrent pancreatitis, Acute diverticulitis of sigmoid colon, Prostatic Hypertrophy, Severe Discogenic Degenerative Disease, Restrictive Lung Disease
Severe discogenic degenerative disease at L5/S1.
Enlarged Prostate
Condition: Fair
Diet: Low Fat
Activity: As tolerated
Driving Restrictions: As prior to admission
Bathing Restrictions: OK to Shower
Activity Restrictions/Additional Instructions:
Follow-up with a urologist for enlarged prostate
Referrals:
Shey Wong CRNP [Family Provider] - in less than 1 week
Referral Note: The patient had hypertension during his admission, may be pain mediated. Please assess need for HPN medication/lifestyle modification. Thank you.
Additional Discharge Medication Instructions: Take Amoxicillin/Clavulanate Potassium (Augmentin 875mg/125mg) 1 tablet, by mouth every 12 hours for 6 more days (Next dose today at 8pm; Last day: May 31, 2025 with 8:00 am dose)
MRI with MRCP to be done in 4 to 6 weeks with follow-up with Dr. Cesar - 07/18 at 11 AM
Follow up with PCP for High Blood Pressure in less than a week
Call PCP or go back to ER for: fever, chills, rigors, increased bloating or difficulty eating
Prescriptions:
New
amoxicillin-pot clavulanate 875-125 mg Tablet
1 tab PO Q12 Qty: 14 0RF
Continued
Balance Of Nature
1 dose PO DAILY PRN (Reason: supplement)
fluticasone propionate 50 mcg/actuation [place],Suspension
1 spray INTRANASAL DAILY PRN (Reason: seasonal allergies)
cetirizine [Zyrtec] 10 mg Tablet
10 mg PO DAILY PRN (Reason: seasonal allergies)
alprazolam 1 mg tablet
0.5 - 1 mg PO HS PRN (Reason: sleep/anxiety)
Patient Comments:
06/13/2023: last filled 04/29/23, 30 tabs for 30 days from [facility]
oxycodone-acetaminophen 5-325 mg Tablet
1 tab PO BID PRN (Reason: moderate pain) Qty: 12 0RF
docusate sodium [Colace] 100 mg capsule
100 mg PO DAILY Qty: 30 0RF
polyethylene glycol 3350 [Miralax] 17 gram powder in packet
17 g PO DAILY Qty: 30 0RF
Discharge Orders:
Discharge Patient (As Directed); Ordered 05/23/25
Ordered By: Gem Chahal
Discharge Date and Time
Discharge Date/Time: 05/23/25 14:44
Print Language: NIGERIAN
== END 2025-05-23 14:44 | disposition home or self-care (01) | DRG 391 ==
LOC: 4 EAST ACU 20:36
PROVIDERS: Physician Assistant Medical; ADMITTING PHYSICIAN Hospitalist; ATTENDING PHYSICIAN Hospitalist; CONSULT PHYSICIAN Internal Medicine; EMERGENCY PHYSICIAN Emergency Medicine; FAMILY PHYSICIAN Nurse Practitioner
DX: K57.32 Diverticulitis of large intestine without perforation or abscess without bleeding (principal); K85.91 Acute pancreatitis with uninfected necrosis, unspecified; K56.0 Paralytic ileus; K86.1 Other chronic pancreatitis; E78.5 Hyperlipidemia, unspecified; F41.9 Anxiety disorder, unspecified; D13.6 Benign neoplasm of pancreas; R03.0 Elevated blood-pressure reading, without diagnosis of hypertension; J98.4 Other disorders of lung; M54.32 Sciatica, left side; M16.0 Bilateral primary osteoarthritis of hip; M51.372 Other intervertebral disc degeneration, lumbosacral region with discogenic back pain and lower extremity pain; K31.7 Polyp of stomach and duodenum; N40.0 Benign prostatic hyperplasia without lower urinary tract symptoms; J43.9 Emphysema, unspecified; Z86.0100 Personal history of colon polyps, unspecified; Z90.49 Acquired absence of other specified parts of digestive tract; Z87.891 Personal history of nicotine dependence
CPT/HCPCS: 74177; 80048; 80053; 83690; 84478; 85025; 85027; 86140; 87040; 93005; 96360; 99285; Q9967

== ENCOUNTER → 2025-07-27 08:57 | Outpatient (REF) | payer OTHER, SELFPAY | LOC: PAVMRI 08:57 | PROVIDERS: ATTENDING PHYSICIAN Internal Medicine Gastroenterology; PRIMARYCARE PHYSICIAN Nurse Practitioner | DX: K85.91 Acute pancreatitis with uninfected necrosis, unspecified (principal) | CPT/HCPCS: 74183; A9575 ==